=== PATIENT | male | born 1975 | race Caucasian/White ===

== ENCOUNTER 2017-12-25 10:08 | Emergency (ER) | payer MEDICAID, OTHER ==
[~2017-12-25] VITALS: Ht 177.8 cm; Wt 75.0 kg
[2017-12-25 10:30] VITALS: BP 114/75; PULSE 53; RESP 18; TEMP 98.1; O2SAT 99
[2017-12-25 11:28] LABS: AUTOMATED NEUTROPHIL # 5.2 TH/MM3 (1.8-7.7); BASOPHIL # 0.1 TH/MM3 (0-0.2); BASOPHIL % 0.6 % (0.0-2.0); EOSINOPHIL # 0.1 TH/MM3 (0-0.4); EOSINOPHIL % 1.4 % (0.0-4.0); HEMATOCRIT 40.7 % (39.0-51.0); HEMOGLOBIN 13.7 GM/DL (13.0-17.0); LYMPH % 29.7 % (9.0-44.0); LYMPHOCYTE # 2.6 TH/MM3 (1.0-4.8); MEAN CELL VOLUME 86.7 FL (80.0-100.0); MEAN CORPUSCULAR HEMOGLOBIN 29.2 PG (27.0-34.0); MEAN CORPUSCULAR HGB CONC 33.7 % (32.0-36.0); MEAN PLATELET VOLUME 7.8 FL (7.0-11.0); MONO % 8.4 % (0.0-8.0); MONOCYTE # 0.7 TH/MM3 (0-0.9); NEUT % 59.9 % (16.0-70.0); PLATELET COUNT 261 TH/MM3 (150-450); RED BLOOD COUNT 4.69 MIL/MM3 (4.50-5.90); RED CELL DISTRIBUTION WIDTH 12.7 % (11.6-17.2); WHITE BLOOD COUNT 8.6 TH/MM3 (4.0-11.0)
[2017-12-25 11:50] LABS: BICARBONATE 26.5 MEQ/L (21.0-32.0); CALCIUM 8.6 MG/DL (8.5-10.1); CHLORIDE 110 MEQ/L (98-107); CREATININE 0.96 MG/DL (0.60-1.30); GLOMERULAR FILTRATION RATE 86 ML/MIN (>89); GLUCOSE,RANDOM 88 MG/DL (74-106); SODIUM (NA) 142 MEQ/L (136-145)
[2017-12-25 11:56] LABS: BLOOD UREA NITROGEN 17 MG/DL (7-18); TROPONIN I LESS THAN 0.02 NG/ML (0.02-0.05)
--- NOTE | 2017-12-25 14:09 | PD ---
HPI Chief Complaint: Chest Pain Time Seen by Provider: 13:34 Travel History International Travel<30 days: No Contact w/Intl Traveler<30days: No Traveled to known affect area: No History of Present Illness HPI 41yo M with no PMH presents to the ED with multiple complaints. Pt was putting a box up over his head this morning and started having pain in right scapula. Pain is worst with movement and then feel that it comes around his bilateral ribs and into chest area. Denies any fever, cough, sob, n/v, abdominal pain, focal weakness. Pt also with tingling sensation in his arms and had this before. Denies any trauma. Denies any family history of sudden cardiac . PFSH Social History Tobacco Use: No Allergies-Medications (Allergen,Severity, Reaction): Coded Allergies: No Known Allergies (Verified Allergy, Unknown, 12/25/17) Reported Meds & Prescriptions Reported Meds & Active Scripts Active Ibuprofen 600 Mg Tab 600 Mg PO Q8HR PRN Review of Systems Except as stated in HPI: all other systems reviewed are Neg Physical Exam Narrative GENERAL: 41yo M not in distress. SKIN: Focused skin assessment warm/dry. HEAD: Atraumatic. Normocephalic. EYES: Pupils equal and round. No scleral icterus. No injection or drainage. ENT: No nasal bleeding or discharge. Mucous membranes pink and moist. NECK: Trachea midline. No JVD. CARDIOVASCULAR: Regular rate and rhythm. No murmur appreciated. RESPIRATORY: No accessory muscle use. Clear to auscultation. Breath sounds equal bilaterally. GASTROINTESTINAL: Abdomen soft, non-tender, nondistended. MUSCULOSKELETAL: +TTP medial left and right scapula. NEUROLOGICAL: Awake and alert. No obvious cranial nerve deficits. Motor grossly within normal limits. Normal speech. PSYCHIATRIC: Appropriate mood and affect; insight and judgment normal. Data Data Last Documented VS Vital Signs Date Time Temp Pulse Resp B/P (MAP) Pulse Ox O2 Delivery O2 Flow Rate FiO2 12/25/17 17:00 97.8 51 16 120/81 (94) 99 12/25/17 15:23 Room Air Orders Orders Electrocardiogram (12/25/17 10:14) Complete Blood Count With Diff (12/25/17 10:14) Basic Metabolic Panel (Bmp) (12/25/17 10:14) Ckmb (Isoenzyme) Profile (12/25/17 10:14) Troponin I (12/25/17 10:14) CKMB (12/25/17 10:43) CKMB% (12/25/17 10:43) Chest, Single Ap (12/25/17 ) Ketorolac Inj (Toradol Inj) (12/25/17 15:30) Ed Discharge Order (12/25/17 16:45) Labs Laboratory Tests Test 12/25/17 10:43 White Blood Count 8.6 TH/MM3 Red Blood Count 4.69 MIL/MM3 Hemoglobin 13.7 GM/DL Hematocrit 40.7 % Mean Corpuscular Volume 86.7 FL Mean Corpuscular Hemoglobin 29.2 PG Mean Corpuscular Hemoglobin Concent 33.7 % Red Cell Distribution Width 12.7 % Platelet Count 261 TH/MM3 Mean Platelet Volume 7.8 FL Neutrophils (%) (Auto) 59.9 % Lymphocytes (%) (Auto) 29.7 % Monocytes (%) (Auto) 8.4 % Eosinophils (%) (Auto) 1.4 % Basophils (%) (Auto) 0.6 % Neutrophils # (Auto) 5.2 TH/MM3 Lymphocytes # (Auto) 2.6 TH/MM3 Monocytes # (Auto) 0.7 TH/MM3 Eosinophils # (Auto) 0.1 TH/MM3 Basophils # (Auto) 0.1 TH/MM3 CBC Comment DIFF FINAL Differential Comment Blood Urea Nitrogen 17 MG/DL Creatinine 0.96 MG/DL Random Glucose 88 MG/DL Calcium Level 8.6 MG/DL Sodium Level 142 MEQ/L Potassium Level 4.3 MEQ/L Chloride Level 110 MEQ/L Carbon Dioxide Level 26.5 MEQ/L Anion Gap 6 MEQ/L Estimat Glomerular Filtration Rate 86 ML/MIN Total Creatine Kinase 241 U/L Creatine Kinase MB 2.5 NG/ML Troponin I LESS THAN 0.02 NG/ML MDM Medical Decision Making Medical Screen Exam Complete: Yes Emergency Medical Condition: Yes Interpretation(s) EKG: Sinus bradycardia at 46bpm. Normal axis. Early repolarization V2, V3. No ST depression. Q wave III. Differential Diagnosis Musculoskeletal pain vs. costochondritis vs. pneumonia vs. atypical chest pain vs. anxiety Narrative Course 41yo M with right upper back pain after putting a box up and it is radiating to bilateral lower chest. Seems very musculoskeletal. Do not think this is cardiac. Labs were drawn prior to my evaluation. Labs reviewed, no leukocytosis. Troponin negative. CXR negative. Pt reevaluated after toradol and said he feels better. Do not feel that this is cardiac. Return precautions given. Diagnosis Primary Impression: Musculoskeletal pain Patient Instructions: General Instructions Departure Forms: Tests/Procedures, Work Release Enter return to work date: Dec 27, 2017 Additional Instructions: Please follow up with your primary care physician in 2-3 days. Return to the ED if symptoms worsen. Med/Other Pt SpecificInfo: Prescription(s) given Scripts Ibuprofen (Ibuprofen) 600 Mg Tab 600 MG PO Q8HR Y for PAIN, #20 TAB 0 Refills Prov: Olesya Salvador DO 12/25/17 Disposition: 01 DISCHARGE HOME Condition: Stable Olesya Salvador DO Dec 25, 2017 14:09
[2017-12-25 14:10] VITALS: BP 116/79; PULSE 51; RESP 16; TEMP 97.8; O2SAT 100
--- NOTE | 2017-12-25 14:54 | RADRPT ---
EXAM DATE/TIME: 12/25/2017 14:21 [facility] COMPARISON: No previous studies available for comparison. INDICATIONS : Pain in lower back radiating to lower flank and chest after lifting. MEDICAL HISTORY : None. SURGICAL HISTORY : None. ENCOUNTER: Initial ACUITY: 1 day PAIN SCORE: 5/10 LOCATION: Bilateral lower chest FINDINGS: A single view of the chest demonstrates the lungs to be symmetrically aerated without evidence of mas s, infiltrate or effusion. The cardiomediastinal contours are unremarkable. Osseous structures are intact. CONCLUSION: No acute disease. Moreno Cuadra MD FACR on December 25, 2017 at 14:51 Board Certified Radiologist. This report was verified electronically.
[2017-12-25 15:23] VITALS: BP 118/79; PULSE 52; RESP 17; TEMP 97.9; O2SAT 100
[2017-12-25] MEDS ORDERED: KETOROLAC TROMETHAMINE 60 MG/2 ML (IM) VIAL IM ONE (15:30)
[2017-12-25 16:26] VITALS: RESP 17
[2017-12-25] MEDS ORDERED: IBUP-232 PO (16:52)
[2017-12-25 17:00] VITALS: BP 120/81; TEMP 97.8
--- NOTE | 2017-12-26 19:11 | EKG ---
Date Performed: 12/25/2017 Time Performed: 10:39:10 PTAGE: 41 years EKG: SINUS BRADYCARDIA BORDERLINE ECG NO PREVIOUS TRACING DOCTOR: Rao Marques Interpretating Date/Time 12/26/2017 19:08:49
== END 2017-12-25 17:00 | disposition home or self-care (01) ==
LOC: NEPE 10:08
DX: M79.1 Myalgia (principal); R94.31 Abnormal electrocardiogram [ECG] [EKG]
CPT/HCPCS: 71045; 80048; 82550; 82552; 84484; 85025; 93005; 96372; 99285; J1885

== ENCOUNTER 2018-01-09 23:24 | Observation (INO) | payer MEDICAID ==
[~2018-01-09 23:24] MED LIST: IBUP-232 PO
[2018-01-09 23:54] VITALS: BP 134/87; PULSE 65; RESP 16; TEMP 98.2; O2SAT 98
[2018-01-10 01:00] VITALS: BP 133/82; PULSE 55; RESP 16; O2SAT 98
[2018-01-10] MEDS ORDERED: ASPIRIN 81 MG CHEW TAB PO ONE (01:00)
[2018-01-10] MEDS ORDERED: SODIUM CHLORIDE 0.9% FLUSH 10 ML FLUSH IVF PRN (01:00)
--- NOTE | 2018-01-10 01:21 | RADRPT ---
EXAM DATE/TIME: 01/10/2018 01:01 [facility] COMPARISON: CHEST SINGLE AP, December 25, 2017, 14:21. INDICATIONS : Chest pain. MEDICAL HISTORY : None. SURGICAL HISTORY : None. ENCOUNTER: Initial ACUITY: 1 day PAIN SCORE: 8/10 LOCATION: Bilateral chest FINDINGS: Single AP view of the chest. The lungs are clear. Cardiomediastinal silhouette within normal limits. No evidence of pleural effusion or pneumothorax. CONCLUSION: No acute cardiopulmonary disease identified. Ang Guzman MD on January 10, 2018 at 1:18 Board Certified Radiologist. This report was verified electronically.
[2018-01-10 01:38] LABS: AUTOMATED NEUTROPHIL # 6.8 TH/MM3 (1.8-7.7); BASOPHIL # 0.1 TH/MM3 (0-0.2); BASOPHIL % 0.5 % (0.0-2.0); EOSINOPHIL # 0.1 TH/MM3 (0-0.4); EOSINOPHIL % 1.4 % (0.0-4.0); HEMATOCRIT 40.6 % (39.0-51.0); HEMOGLOBIN 13.8 GM/DL (13.0-17.0); LYMPH % 23.2 % (9.0-44.0); LYMPHOCYTE # 2.4 TH/MM3 (1.0-4.8); MEAN CELL VOLUME 85.9 FL (80.0-100.0); MEAN CORPUSCULAR HEMOGLOBIN 29.2 PG (27.0-34.0); MEAN PLATELET VOLUME 8.1 FL (7.0-11.0); MONO % 8.9 % (0.0-8.0); MONOCYTE # 0.9 TH/MM3 (0-0.9); PLATELET COUNT 256 TH/MM3 (150-450); RED BLOOD COUNT 4.72 MIL/MM3 (4.50-5.90); WHITE BLOOD COUNT 10.3 TH/MM3 (4.0-11.0)
[2018-01-10] MEDS ORDERED: ALUMINUM/MAGNESIUM/SIMETH 30 ML CUP PO ONE (01:45)
[2018-01-10] MEDS ORDERED: FAMOTIDINE 20 MG TAB PO ONE (01:45)
[2018-01-10] MEDS ORDERED: LIDOCAINE VISCOUS 2% SOLN 15 ML UDC PO ONE (01:45)
[2018-01-10 01:53] LABS: PROTHROMBIN TIME - PATIENT 9.8 SEC (9.8-11.6)
[2018-01-10 01:58] LABS: ALBUMIN 4.2 GM/DL (3.4-5.0); AST (GOT) 18 U/L (15-37); BICARBONATE 24.9 MEQ/L (21.0-32.0); BLOOD UREA NITROGEN 21 MG/DL (7-18); CALCIUM 8.7 MG/DL (8.5-10.1); CHLORIDE 108 MEQ/L (98-107); CREATININE 1.01 MG/DL (0.60-1.30); GLOMERULAR FILTRATION RATE 81 ML/MIN (>89); GLUCOSE,RANDOM 77 MG/DL (74-106); SODIUM (NA) 142 MEQ/L (136-145)
[2018-01-10 02:00] VITALS: BP 137/83; PULSE 52; RESP 16; O2SAT 97
[2018-01-10 02:04] LABS: ALKALINE PHOSPHATASE 61 U/L (45-117); ALT (GPT) 26 U/L (12-78); DIRECT BILIRUBIN ADULT 0.1 MG/DL (0.0-0.2); INDIRECT BILIRUBIN 0.2 MG/DL (0.0-0.8); TOTAL BILIRUBIN ADULT 0.3 MG/DL (0.2-1.0); TOTAL PROTEIN 7.6 GM/DL (6.4-8.2); TROPONIN I LESS THAN 0.02 NG/ML (0.02-0.05)
--- NOTE | 2018-01-10 02:52 | PD ---
HPI Chief Complaint: Cardiac Complaint Time Seen by Provider: 00:38 Travel History International Travel<30 days: No Contact w/Intl Traveler<30days: No Traveled to known affect area: No History of Present Illness HPI Patient is a 42-year-old male who comes in complaining of chest pain. He says he was here about 2 weeks ago for the same thing, but the pain keeps coming back. He is says that he has had pain on and off for the past week, but today got worse. He says that exertion makes the pain worse. He says taking deep breaths make the pain worse. He denies nausea or vomiting. Denies cough or cold. He denies fever or chills. He has not taken anything for the pain. He denies smoking or illicit drug use. Severity is mild to moderate. PFSH Past Medical History Medical History: Denies Significant Hx Diminished Hearing: No Past Surgical History Surgical History: No Previous Surgery Social History Alcohol Use: Yes (RARE) Tobacco Use: No Substance Use: Yes (MARIJUANA OCC) Allergies-Medications (Allergen,Severity, Reaction): Coded Allergies: No Known Allergies (Verified Allergy, Unknown, 12/25/17) Reported Meds & Prescriptions Reported Meds & Active Scripts Active Ibuprofen 600 Mg Tab 600 Mg PO Q8HR PRN Review of Systems Except as stated in HPI: all other systems reviewed are Neg General / Constitutional: No: Fever, Chills HENT: No: Headaches, Lightheadedness Cardiovascular: Positive: Chest Pain or Discomfort Respiratory: No: Cough Gastrointestinal: No: Nausea, Vomiting Musculoskeletal: No: Myalgias, Edema Skin: No Rash, No Change in Pigmentation Neurologic: No: Weakness Physical Exam Narrative GENERAL: Awake and alert, in no acute distress. SKIN: Focused skin assessment warm/dry. HEAD: Atraumatic. Normocephalic. EYES: Pupils equal and round. No scleral icterus. ENT: Mucous membranes pink and moist. NECK: Trachea midline. No JVD. CARDIOVASCULAR: Regular rate and rhythm. No murmur appreciated. RESPIRATORY: No accessory muscle use. Clear to auscultation. Breath sounds equal bilaterally. GASTROINTESTINAL: Abdomen soft, non-tender, nondistended. MUSCULOSKELETAL: No obvious deformities. No clubbing. No cyanosis. No edema. NEUROLOGICAL: Awake and alert. No obvious cranial nerve deficits. Motor grossly within normal limits. Normal speech. PSYCHIATRIC: Appropriate mood and affect; insight and judgment normal. Data Data Last Documented VS Vital Signs Date Time Temp Pulse Resp B/P (MAP) Pulse Ox O2 Delivery O2 Flow Rate FiO2 01/09/18 23:54 98.2 65 16 134/87 (103) 98 Orders Orders Basic Metabolic Panel (Bmp) (01/10/18 00:56) Ckmb (Isoenzyme) Profile (01/10/18 00:56) Complete Blood Count With Diff (01/10/18 00:56) Prothrombin Time / Inr (Pt) (01/10/18 00:56) Act Partial Throm Time (Ptt) (01/10/18 00:56) Troponin I (01/10/18 00:56) Lipase (01/10/18 00:56) Chest, Single Ap (01/10/18 00:56) Ecg Monitoring (01/10/18 00:56) Bilateral Bp Monitoring (01/10/18 00:56) Iv Access Insert/Monitor (01/10/18 00:56) Oximetry (01/10/18 00:56) Aspirin Chew (Aspirin Chew) (01/10/18 01:00) Sodium Chloride 0.9% Flush (Ns Flush) (01/10/18 01:00) Hepatic Functional Panel (01/10/18 00:56) Al-Mag Hy-Si 40-40-4 Mg/Ml Liq (Mag-Al P (01/10/18 01:45) Lidocaine 2% Viscous (Xylocaine 2% Visco (01/10/18 01:45) Famotidine (Pepcid) (01/10/18 01:45) CKMB (01/10/18 00:50) CKMB% (01/10/18 00:50) Activity Bed Rest With Brp (01/10/18 02:50) Vital Signs (Adult) Q4H (01/10/18 02:50) Cardiac Rhythm .As Directed (01/10/18 02:50) Notify Dr: Other .PRN (01/10/18 02:50) Notify Parameters (01/10/18 02:50) Resp Oxygen Nasal Cannula (01/10/18 ) Diet Heart Healthy (01/10/18 Breakfast) Ckmb (Isoenzyme) Profile (01/10/18 03:50) Ckmb (Isoenzyme) Profile (01/10/18 06:50) Troponin I (01/10/18 03:50) Troponin I (01/10/18 06:50) Electrocardiogram (01/10/18 03:50) Electrocardiogram (01/10/18 06:50) ^ Obtain (01/10/18 02:50) Sodium Chloride 0.9% Flush (Ns Flush) (01/10/18 03:00) Sodium Chloride 0.9% Flush (Ns Flush) (01/10/18 09:00) Engagement Manager / Telemetry GAURAV.Q8H (01/10/18 02:50) Admit Order (Ed Use Only) (01/10/18 ) Labs Laboratory Tests Test 01/10/18 00:50 White Blood Count 10.3 TH/MM3 Red Blood Count 4.72 MIL/MM3 Hemoglobin 13.8 GM/DL Hematocrit 40.6 % Mean Corpuscular Volume 85.9 FL Mean Corpuscular Hemoglobin 29.2 PG Mean Corpuscular Hemoglobin Concent 34.0 % Red Cell Distribution Width 13.0 % Platelet Count 256 TH/MM3 Mean Platelet Volume 8.1 FL Neutrophils (%) (Auto) 66.0 % Lymphocytes (%) (Auto) 23.2 % Monocytes (%) (Auto) 8.9 % Eosinophils (%) (Auto) 1.4 % Basophils (%) (Auto) 0.5 % Neutrophils # (Auto) 6.8 TH/MM3 Lymphocytes # (Auto) 2.4 TH/MM3 Monocytes # (Auto) 0.9 TH/MM3 Eosinophils # (Auto) 0.1 TH/MM3 Basophils # (Auto) 0.1 TH/MM3 CBC Comment DIFF FINAL Differential Comment Prothrombin Time 9.8 SEC Prothromb Time International Ratio 1.0 RATIO Activated Partial Thromboplast Time 26.5 SEC Blood Urea Nitrogen 21 MG/DL Creatinine 1.01 MG/DL Random Glucose 77 MG/DL Total Protein 7.6 GM/DL Albumin 4.2 GM/DL Calcium Level 8.7 MG/DL Alkaline Phosphatase 61 U/L Aspartate Amino Transf (AST/SGOT) 18 U/L Alanine Aminotransferase (ALT/SGPT) 26 U/L Total Bilirubin 0.3 MG/DL Direct Bilirubin 0.1 MG/DL Sodium Level 142 MEQ/L Potassium Level 3.6 MEQ/L Chloride Level 108 MEQ/L Carbon Dioxide Level 24.9 MEQ/L Anion Gap 9 MEQ/L Estimat Glomerular Filtration Rate 81 ML/MIN Indirect Bilirubin 0.2 MG/DL Total Creatine Kinase 276 U/L Creatine Kinase MB 2.8 NG/ML Troponin I LESS THAN 0.02 NG/ML Lipase 154 U/L MDM Medical Decision Making Medical Screen Exam Complete: Yes Emergency Medical Condition: Yes Medical Record Reviewed: Yes Interpretation(s) ECG shows sinus bradycardia rate of 46, no ST elevation or depression Differential Diagnosis GERD versus ACS versus pneumonia versus pneumothorax versus costochondritis Narrative Course Patient is a 42-year-old male comes in complaining of chest pain. Exam shows no acute abnormalities. IV established, labs sent, patient connected to the helper coordinator. Labs show no acute abnormalities. Patient given aspirin. Given a GI cocktail. Chest x-ray shows no acute abnormalities. Patient reports no improvement of his symptoms. He will be placed in chest pain center for further management. Diagnosis Primary Impression: Chest pain Qualified Codes: R07.9 - Chest pain, unspecified Admitting Information Admitting Physician Requests: Laury Richey MD Jan 10, 2018 02:52
[2018-01-10 03:00] VITALS: BP 136/80; PULSE 45; RESP 16; O2SAT 100; O2SAT 97
[2018-01-10] MEDS ORDERED: SODIUM CHLORIDE 0.9% FLUSH 10 ML FLUSH IV FLUSH PRN (03:00)
[2018-01-10 04:42] LABS: TROPONIN I LESS THAN 0.02 NG/ML (0.02-0.05)
[2018-01-10 06:34] VITALS: BP 121/85; PULSE 54; RESP 16; TEMP 97.5; O2SAT 98
[2018-01-10] MEDS ORDERED: NITROGLYCERIN 0.4 MG SL 25 TABS/BTL SL PRN (07:45)
[2018-01-10] MEDS ORDERED: ACETAMINOPHEN 500 MG CPLT PO PRN (07:45)
[2018-01-10] MEDS ORDERED: ONDANSETRON HCL 4 MG/2 ML VIAL IV PUSH PRN (07:45)
[2018-01-10 07:50] LABS: TROPONIN I LESS THAN 0.02 NG/ML (0.02-0.05)
[2018-01-10 08:00] VITALS: BP 128/80; PULSE 45; RESP 18; TEMP 97.8; O2SAT 98
--- NOTE | 2018-01-10 08:54 | HHI.HP ---
HPI Primary Care Physician No Primary Care Physician Chief Complaint Chest pain History of Present Illness 42 year old male without significant past medical history. Onset 2 weeks ago after moving boxes while at work. Reports "throwing his back out." Came to ER for further evaluation. Injury also presented with a chest pain component. Seen in ER at that time, diagnosed with musculoskeletal chest wall pain, prescribed ibuprofen, and discharged home. Discomfort gradually improved within 3 days, returning slightly on Thursday. Since Thursday chest discomfort gradually getting worse in intensity and frequency. Discomfort and constant since Thursday morning. Location left anterior chest. Characterized as "jabbing pain." Endorses hurts to take a deep breath, to touch area, and certain movements. No associated symptoms of nausea, vomiting, or diaphoresis. Endorses shortness of breath on Thursday, although uncertain if shortness of breath was due to pain with inspiration. No known precipitating or relieving factors. Denies similar pain in the past. Due to prolonged duration, came to the ER after his evening shift for further evaluation. Review of Systems General: No fatigue,weakness, fever, chills, recent illness, or change in appetite. Has been in his general state of health. HEENT: No CRUZ, no vision changes, no nasal congestion or drainage, no dysphasia CV: Continues to have chest pain as stated above. RESP: No SOB, cough, wheeze GI: No nausea, vomiting, bowel changes, diarrhea, constipation, pain, distention , melena, or blood in the stool. : No dysuria, urgency, frequency EXT: No lower leg edema, no paraesthesias MS: No discomfort or change in ROM. Recent injury 2 weeks ago while lifting box NEURO: No change in memory, difficulty with balance, LOC, motor/sensory deficits PSYCH: No anxiety, depression SKIN: No rashes, no concerning lesions Past Family Social History Allergies: Coded Allergies: No Known Allergies (Verified Allergy, Unknown, 12/25/17) Past Medical History None Past Surgical History None Reported Medications Reported Meds & Active Scripts Active None Active Ordered Medications Current Medications Medications (Trade) Dose Ordered Sig/Tam Route Start Time Stop Time Status Last Admin (NS Flush) 2 ml UNSCH PRN IV FLUSH 01/10/18 03:00 (NS Flush) 2 ml BID IV FLUSH 01/10/18 09:00 (Tylenol) 500 mg Q4H PRN PO 01/10/18 07:45 (Zofran Inj) 4 mg Q6H PRN IV PUSH 01/10/18 07:45 (Nitrostat Sl) 0.4 mg Q5M PRN SL 01/10/18 07:45 (Aspirin) 325 mg DAILY PO 01/11/18 09:00 Family History Noncontributory for early onset cardiovascular disease. Social History No known diabetes, hypertension, or hyperlipidemia. Lifelong non-smoker. Rare alcohol use. Endorses occasionally smokes marijuana. . 3 young children, twin boys ages 3, 1-year-old daughter. Works at local [employer]. Past cardiac testing None Physical Exam Vital Signs Vital Signs Date Time Temp Pulse Resp B/P (MAP) Pulse Ox O2 Delivery O2 Flow Rate FiO2 01/10/18 08:00 97.8 45 18 128/80 (96) 98 01/10/18 06:34 97.5 54 16 121/85 (97) 98 01/10/18 06:24 01/10/18 03:00 97 21 01/10/18 03:00 45 16 136/80 (98) 100 Room Air 01/10/18 02:00 52 16 137/83 (101) 97 Room Air 01/10/18 01:00 55 16 133/82 (99) 98 Room Air 01/09/18 23:54 98.2 65 16 134/87 (103) 98 Physical Exam GENERAL: Alert WN, WD, NAD, pleasant, male HEAD: NC, AT EYES: Sclera clear, conjunctiva without injection, pupils equal and round ENT: Mucous membranes pink and moist CV: Bradycardic rate regular, without murmur, rub, gallop, no JVD, S1-S2 no S3- S4. Chest wall tender with palpation. RESP: Clear lungs throughout bilateral, no crackles, wheeze, rhonchi, symmetrical chest rise, nonlabored, able to speak in full sentences ABD: Soft, NT, ND, no masses, positive bowel tones BACK: No scoliosis EXT: Pulses +2x4, no dependent edema MS: Normal tone -4 extremities, no obvious deformities, full range of motion NEURO: CN II through CN XII grossly intact, motor strength 5/5 PSYCH: A+O x3, pleasant affect, appropriate speech, mood, insight and judgment SKIN: Normal turgor, normal texture, no lesions, no rashes, brisk cap refill, even hair distribution Laboratory Laboratory Tests Test 01/10/18 00:50 01/10/18 04:00 01/10/18 06:35 White Blood Count 10.3 Red Blood Count 4.72 Hemoglobin 13.8 Hematocrit 40.6 Mean Corpuscular Volume 85.9 Mean Corpuscular Hemoglobin 29.2 Mean Corpuscular Hemoglobin Concent 34.0 Red Cell Distribution Width 13.0 Platelet Count 256 Mean Platelet Volume 8.1 Neutrophils (%) (Auto) 66.0 Lymphocytes (%) (Auto) 23.2 Monocytes (%) (Auto) 8.9 Eosinophils (%) (Auto) 1.4 Basophils (%) (Auto) 0.5 Neutrophils # (Auto) 6.8 Lymphocytes # (Auto) 2.4 Monocytes # (Auto) 0.9 Eosinophils # (Auto) 0.1 Basophils # (Auto) 0.1 CBC Comment DIFF FINAL Differential Comment Prothrombin Time 9.8 Prothromb Time International Ratio 1.0 Activated Partial Thromboplast Time 26.5 Blood Urea Nitrogen 21 Creatinine 1.01 Random Glucose 77 Total Protein 7.6 Albumin 4.2 Calcium Level 8.7 Alkaline Phosphatase 61 Aspartate Amino Transf (AST/SGOT) 18 Alanine Aminotransferase (ALT/SGPT) 26 Total Bilirubin 0.3 Direct Bilirubin 0.1 Sodium Level 142 Potassium Level 3.6 Chloride Level 108 Carbon Dioxide Level 24.9 Anion Gap 9 Estimat Glomerular Filtration Rate 81 Indirect Bilirubin 0.2 Total Creatine Kinase 276 219 208 Creatine Kinase MB 2.8 2.5 2.3 Troponin I LESS THAN 0.02 LESS THAN 0.02 LESS THAN 0.02 Lipase 154 Result Diagram: 01/10/18 0050 01/10/18 0050 Imaging Last 48 hours Impressions Chest X-Ray 01/10/1855 Signed Impressions: Service Date/Time: Wednesday, January 10, 2018 01:01 - CONCLUSION: No acute cardiopulmonary disease identified. Ang Guzman MD Course EKG Normal sinus bradycardia, no ST changes Caprini VTE Risk Assessment Caprini VTE Risk Assessment: No/Low Risk (score <= 1) Caprini Risk Assessment Model Point Value = 1 Point Value = 2 Point Value = 3 Point Value = 5 Age 41-60 Minor surgery BMI > 25 kg/m2 Swollen legs Varicose veins or History of unexplained or recurrent spontaneous Oral contraceptives or hormone replacement Sepsis (< 1 month) Serious lung disease, including pneumonia (< 1 month) Abnormal pulmonary function Acute myocardial infarction Congestive heart failure (< 1 month) History of inflammatory bowel disease Medical patient at bed rest Age 61-74 Arthroscopic surgery Major open surgery (> 45 min) Laparoscopic surgery (> 45 min) Malignancy Confined to bed (> 72 hours) Immobilizing plaster cast Central venous access Age >= 75 History of VTE Family history of VTE Factor V Leiden Prothrombin [id number] Lupus anticoagulant Anticardiolipin antibodies Elevated serum homocysteine Heparin-induced thrombocytopenia Other congenital or acquired thrombophilia Stroke (< 1 month) Elective arthroplasty Hip, pelvis, or leg fracture Acute spinal cord injury (< 1 month) Prophylaxis Regimen Total Risk Factor Score Risk Level Prophylaxis Regimen 0-1 Low Early ambulation 2 Moderate Order ONE of the following: *Sequential Compression Device (SCD) *Heparin 5000 units SQ BID 3-4 Higher Order ONE of the following medications: *Heparin 5000 units SQ TID *Enoxaparin/Lovenox 40 mg SQ daily (WT < 150 kg, CrCl > 30 mL/min) *Enoxaparin/Lovenox 30 mg SQ daily (WT < 150 kg, CrCl > 10-29 mL/min) *Enoxaparin/Lovenox 30 mg SQ BID (WT < 150 kg, CrCl > 30 mL/min) AND/OR *Sequential Compression Device (SCD) 5 or more Highest Order ONE of the following medications: *Heparin 5000 units SQ TID (Preferred with Epidurals) *Enoxaparin/Lovenox 40 mg SQ daily (WT < 150 kg, CrCl > 30 mL/min) *Enoxaparin/Lovenox 30 mg SQ daily (WT < 150 kg, CrCl > 10-29 mL/min) *Enoxaparin/Lovenox 30 mg SQ BID (WT < 150 kg, CrCl > 30 mL/min) AND *Sequential Compression Device (SCD) Assessment and Plan Assessment and Plan #1 Atypical chest pain-admitted to chest pain center. Rule out with 3 sets of EKGs and cardiac enzymes. Continue to monitor on telemetry. Will be seen and evaluated by Dr. Christian waterman. Discussed likelihood of a complete exercise stress test after being ruled out. Reassurance provided discomfort appears to be musculoskeletal chest wall pain. Toradol 30 mg IV x1. Further disposition to follow after evaluation by armature balancer. Chantel Aiken Jan 10, 2018 08:54
[2018-01-10] MEDS ORDERED: SODIUM CHLORIDE 0.9% FLUSH 10 ML FLUSH IV FLUSH SCH (09:00)
[2018-01-10] MEDS ORDERED: KETOROLAC TROMETHAMINE 30 MG/ML (IVP) VIAL IV PUSH ONE (09:30)
[2018-01-10 12:00] VITALS: BP 120/82; PULSE 45; RESP 18; TEMP 98.5; O2SAT 96
[2018-01-10] MEDS ORDERED: MELO15TA20 PO (12:53)
--- NOTE | 2018-01-10 12:54 | HHI.DCPOC ---
Discharge Care Plan Diagnosis: (1) Musculoskeletal chest pain Goals to Promote Your Health * To prevent worsening of your condition and complications * To maintain your health at the optimal level Directions to Meet Your Goals Take your medications as prescribed Follow your dietary instruction Follow activity as directed Keep your appointments as scheduled Take your immunizations and boosters as scheduled If your symptoms worsen call your PCP, if no PCP go to Urgent Care Center or Emergency Room Smoking is Dangerous to Your Health. Avoid second hand smoke Call the 24-hour hour crisis hotline for domestic abuse at Chantel Aiken Jan 10, 2018 12:54
--- NOTE | 2018-01-10 16:35 | TR ---
Date Performed: 01/10/2018 Time Performed: 12:24:55 DOCTOR: Christian Stephens DRUG LIST: CLINICAL HISTORY: CHEST PAIN REASON FOR TEST: REASON FOR ENDING: OBSERVATION: CONCLUSION: Jordan protocol completed. Stopped sec to exceeding target heart rate and leg fatigue . Maximum OU=833 Target HR Beptqope=508.0% Maximum RM=982/90 Total Exercise Time=10:31. No reprod italo st discomfort. Occassional PVC. Great exercise tolerance. No st t segment changes. Normal bp respons e. Sinus arrhythmia with PVCs during recovery otherwise recovery unremarkable. COMMENTS: Conclusion: Normal treadmill exercise. No evidence of ischemia.
--- NOTE | 2018-01-10 16:41 | EKG ---
Date Performed: 01/10/2018 Time Performed: 06:42:03 PTAGE: 42 years EKG: SINUS BRADYCARDIA NORMAL ECG PREVIOUS TRACING : 01/10/2018 04.00 Since previous tracing, no significant change noted DOCTOR: Christian Stephens Interpretating Date/Time 01/10/2018 16:41:33
--- NOTE | 2018-01-10 16:42 | EKG ---
Date Performed: 01/10/2018 Time Performed: 04:00:31 PTAGE: 42 years EKG: SINUS BRADYCARDIA WITH OCCASIONAL VENTRICULAR PREMATURE COMPLEXES BORDERLINE ECG PREVIOUS TRACING : 01/10/2018 00.38 Since previous tracing, no significant change noted DOCTOR: Christian Stephens Interpretating Date/Time 01/10/2018 16:42:32
--- NOTE | 2018-01-10 16:44 | EKG ---
Date Performed: 01/10/2018 Time Performed: 00:38:22 PTAGE: 42 years EKG: SINUS BRADYCARDIA BORDERLINE ECG PREVIOUS TRACING : 12/25/2017 10.39 Since previous tracing, no significant change noted DOCTOR: Christian Stephens Interpretating Date/Time 01/10/2018 16:43:21
[2018-01-11] MEDS ORDERED: ASPIRIN 325 MG TAB PO SCH (09:00)
== END 2018-01-10 15:25 | disposition home or self-care (01) ==
LOC: NEPC 23:24 → NEDA 01-10 02:52 → NEPGCP 01-10 06:27
DX: R07.89 Other chest pain (principal); R06.02 Shortness of breath
CPT/HCPCS: 71045; 80048; 80076; 82550; 82552; 83690; 84484; 85025; 85610; 85730; 93005; 93017; 96374; 99285; G0378; J1885